=== PATIENT | male | born 1985 | race Caucasian/White ===

== ENCOUNTER 2017-04-12 10:03 | Emergency (ER) | payer BC ==
[~2017-04-12 10:03] MED LIST: CILOXAN5 ML OP; NO MEDS CURRENTLY; NORCO 5/325 TAB1 TAB PO; ZOFRAN ODT4 MG/UDTAB PO
[2017-04-12 10:58] LABS: BASO % 0.4 % (0-2); EOS % 3.1 % (0-7); EOSINOPHIL ABSOLUTE COUNT 0.2 tho/cmm (0.0-0.7); HCT-HEMATOCRIT 46.7 % (36.0-53.5); HGB-HEMOGLOBIN 16.5 gm/dl (13.5-17.0); LYMPH % 44.8 % (20-45); LYMPH ABSOLUTE COUNT 3.1 tho/cmm (0.8-4.5); MCH (MEAN CORPUSCULAR HGB) 29.8 pg (28.0-32.0); MCHC MEAN CORPUSCULAR HGB CONC 35.3 % (32.0-36.0); MCV (MEAN CELL VOLUME) 84.4 fl (82.0-96.0); MEAN PLATELET VOLUME 10.8 cmc (9.4-12.4); MONO % 6.5 % (0-12); MONOCYTE ABSOLUTE COUNT 0.4 tho/cmm (0.0-1.2); NEUTROPHIL ABSOLUTE COUNT 3.1 tho/cmm (1.6-8.0); NEUTROPHIL-AUTOMATED 3.1 tho/cmm (1.6-8.0); NEUTROPHILS % 45.2 % (40-80); PLATELET COUNT 230 tho/cmm (150-450); RED BLOOD COUNT 5.53 mil/cmm (4.40-5.70); RED CELL DISTRIBUTION WIDTH 12.6 % (12.4-16.4); WHITE BLOOD COUNT 6.8 tho/cmm (4.0-10.0)
[2017-04-12 11:10] LABS: ANION GAP 10 mmol/L (0-20); BLOOD UREA NITROGEN 9 mg/dl (6-24); CARBON DIOXIDE-VENOUS 27 mmol/L (22-32); CHLORIDE 107 mmol/l (96-110); CREATININE 1.15 mg/dl (0.60-1.30); GLUCOSE 91 mg/dL (70-110); POTASSIUM 3.9 mmol/L (3.7-5.1); SODIUM 140 mmol/L (135-145); eGFR VALUE FOR BLACK >90 mL/Min
== END 2017-04-12 12:44 ==
LOC: EDMED 10:03
PROVIDERS: Emergency Medicine
DX: R07.89 Other chest pain (principal); M54.9 Dorsalgia, unspecified; Z87.891 Personal history of nicotine dependence
CPT/HCPCS: J1885